=== PATIENT | male | born 1955 | race Caucasian/White ===

== ENCOUNTER 2017-10-13 16:03 | Emergency (ER) | payer BC ==
[2017-10-25] MEDS ORDERED: IBUPROFEN600 MG PO (11:26)
[2017-10-25] MEDS ORDERED: HYDROCODONE-APA1 TAB PO (11:26)
[2017-10-25] MEDS ORDERED: MULTIPLE VITAMI1 TA1 PO (11:33)
[2017-10-25] MEDS ORDERED: TESTOSTERON200 MG/ML IM (11:34)
[2017-10-26 07:22] VITALS: BMI 27.8
== END 2017-10-13 18:41 | disposition home or self-care (01) ==
LOC: D.ER 16:03
DX: S43.102A Unspecified dislocation of left acromioclavicular joint, initial encounter (principal); W19.XXXA Unspecified fall, initial encounter; Y93.89 Activity, other specified; Y92.029 Unspecified place in mobile home as the place of occurrence of the external cause; S42.002A Fracture of unspecified part of left clavicle, initial encounter for closed fracture

== ENCOUNTER 2017-10-26 05:15 | Day surgery (SDC) | payer BC ==
[~2017-10-26] VITALS: Ht 182.9 cm; Wt 93.0 kg
[~2017-10-26 05:15] MED LIST: HYDROCODONE-APA1 TAB PO; IBUPROFEN600 MG PO; MULTIPLE VITAMI1 TA1 PO; TESTOSTERON200 MG/ML IM
[2017-10-26 07:22] VITALS: BP 124/80; Ht 182.9 cm; Wt 93.0 kg
[2017-10-26] MEDS ORDERED: PERCOCET 7.5/321 TAB PO (08:24)
[2017-10-26] MEDS ORDERED: BACTRIM DS TABL1 TAB PO (08:25)
--- NOTE | 2017-10-26 11:45 | NUR ---
IV DC WITH CATHER TIP INTACT
--- NOTE | 2017-10-26 15:56 | OP ---
PATIENT NAME: GIGI HAMMOND MEDICAL RECORD: [id number] :59 LOCATION:[facility] ADMISSION DATE: SURGEON: SETH ROBERTSON DO DATE OF OPERATION: 10/26/2017 PROCEDURE PERFORMED: Left coracoclavicular ligament reconstruction. PREOPERATIVE DIAGNOSIS: Left acromioclavicular separation, grade III. POSTOPERATIVE DIAGNOSES: Left acromioclavicular separation, grade III. INDICATIONS: Mr. 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 He came to see me in the office shortly thereafter and a discussion was had with him about treatment. I told him we could try a nonoperative treatment and if that did not work and he did not tolerate that then and we could fix it. He called me a couple of days later and decided he wanted it fixed and he was scheduled for the procedure. He was informed of the risks and benefits of the procedure prior to coming and was consented for it. SURGEON: Seth Robertson DO ESTIMATED BLOOD LOSS: Approximately 50 mL. COMPLICATIONS: None. DESCRIPTION OF PROCEDURE: The patient was taken to the operative suite, laid in the supine position. He had been given a block in preoperative area by anesthesia prior to this, the left arm and shoulder were identified, prepped and draped, timeout was performed, and everyone was in agreement of correct side, site, and patient. The patient was given 900 mg clindamycin prior to starting the procedure. Once this was done, an incision was marked out over the AC joint and angling towards the coracoid in a vertical oblique type incision. The skin was incised with a #15 blade and then Bovie was used through the rest of the skin down to the deltoid fascia and the clavicle. The clavicle was palpated and a Bovie was used to take the deltoid off of the clavicle as well as for the trapezium. This was peeled off and the clavicle was exposed and the deltoid was divided. There was some bleeding encountered and that vein was tied off and bovied. Once that was done, the coracoid was encountered, clear path was cleared and the coracoid tip was palpated. A drill was then used after measurement was made 3.5 cm from the distal clavicle medially. That site was marked in the center of the clavicle from anterior to posterior. The drill was drilled through the clavicle and then a spot was checked and the drill was then taken to the base of the coracoid and then the overdrill was used over that. Once this was done, the drill and overdrilled were removed and button was pushed through sarika holes and then set. The button was flipped on the inferior surface of the coracoid. Once this was done, button was placed on the superior aspect of the clavicle and the clavicle was cinched down. Once this was cinched down and seemed to be very tight, x-ray was taken and seemed to be in good position; however, there was some remaining distal clavicle somewhat elevated and this was exposed and then taken off with a saw and then smoothed out and we recinched down the button. Again, x-ray was taken and seemed to be in very good position and very adequate reduction and then the wound was thoroughly irrigated. The deltoid and trapezium fascia were repaired over the clavicle and over the AC joint in an inverted fashion with #2 Ethibond, it seemed to be a very good OPERATIVE REPORT [id number] GIGI HAMMOND closure and then irrigated again and the skin was closed with 2-0 Vicryl in an inverted interrupted fashion and then Prineo glue was placed over that incision. The wounds were then dressed with Adaptic, 4 x 4s and ABD and placed into a sling, awakened and taken to recovery in stable condition. TRANSINT:[id number] Voice Confirmation ID: [id number] DOCUMENT ID: [id number] SETH ROBERTSON DO at 1556 CC: [id number] DICTATION DATE: 10/26/17 1034 BATCH AND FURNACE OPERATOR: 10/26/17 1158 [facility] 10/26/17 [id number] [place] [address]
== END 2017-10-26 12:19 | disposition home or self-care (01) ==
LOC: D.OPS 05:15 → D.PAN 08:45 → D.OPS 08:45
DX: S43.102A Unspecified dislocation of left acromioclavicular joint, initial encounter (principal); K21.9 Gastro-esophageal reflux disease without esophagitis; M19.90 Unspecified osteoarthritis, unspecified site; Z01.812 Encounter for preprocedural laboratory examination

== ENCOUNTER → 2018-09-20 13:27 | Outpatient (CLI) | payer SELFPAY ==
[2017-10-26 07:22] VITALS: BMI 27.8
[~2018-09-20 13:27] MED LIST changes: +BACTRIM DS TABL1 TAB PO; +PERCOCET 7.5/321 TAB PO
[2018-09-20 13:45] LABS: BASOPHILS 0.3 % (0-2); EOSINOPHILS 1.9 % (0-7); HEMATOCRIT 42.9 % (42.0-54.0); HEMOGLOBIN 14.4 g/dL (13.5-17.5); IMMATURE GRANULOCYTES 0.2 % (0-5); LYMPHOCYTES 22.7 % (15-50); MCH 29.1 pg (26.0-34.0); MCHC 33.6 g/dL (31.0-37.0); MCV 86.8 fL (80.0-100.0); MEAN PLATELET VOLUME 9.2 fL (7.4-10.4); MONOCYTES 17.9 % (2-11); PLATELET COUNT 193 10x3/uL (130-400); RBC 4.94 10x6/uL (4.20-6.10); RDW 14.3 % (11.5-14.5); WBC 5.8 10x3/uL (4.8-10.8)
[2018-09-20 14:01] LABS: CREATININE - SERUM 0.9 mg/dL (0.6-1.3); VANCOMYCIN - TROUGH 5.9 ug/mL (10.0-20.0)
== END | disposition home or self-care (01) ==
LOC: D.LABREF 13:27
PROVIDERS: Orthopaedic Surgery Adult Reconstructive Orthopaedic Surgery
DX: T84.54XD Infection and inflammatory reaction due to internal left knee prosthesis, subsequent encounter (principal); K21.9 Gastro-esophageal reflux disease without esophagitis

== ENCOUNTER → 2018-09-26 10:53 | Outpatient (CLI) | payer OTHER ==
[2017-10-26 07:22] VITALS: BMI 27.8
[2018-09-26 12:05] LABS: BASOPHILS 0.6 % (0-2); HEMATOCRIT 43.1 % (42.0-54.0); HEMOGLOBIN 14.5 g/dL (13.5-17.5); LYMPHOCYTES 25.5 % (15-50); MCH 28.8 pg (26.0-34.0); MCHC 33.6 g/dL (31.0-37.0); MCV 85.7 fL (80.0-100.0); MEAN PLATELET VOLUME 8.8 fL (7.4-10.4); MONOCYTES 13.8 % (2-11); NEUTROPHILS 54.1 % (40-80); RBC 5.03 10x6/uL (4.20-6.10)
[2018-09-26 12:06] LABS: PLATELET COUNT 248 10x3/uL (130-400)
[2018-09-26 12:24] LABS: CREATININE - SERUM 0.9 mg/dL (0.6-1.3); VANCOMYCIN - TROUGH 10.2 ug/mL (10.0-20.0)
== END | disposition home or self-care (01) ==
LOC: D.LABREF 10:53
PROVIDERS: Internal Medicine Infectious Disease
DX: T84.54XD Infection and inflammatory reaction due to internal left knee prosthesis, subsequent encounter (principal); Z96.652 Presence of left artificial knee joint

== ENCOUNTER → 2018-10-03 10:37 | Outpatient (CLI) | payer OTHER ==
[2017-10-26 07:22] VITALS: BMI 27.8
== END | disposition home or self-care (01) ==
LOC: D.LABREF 10:37
DX: T84.54XD Infection and inflammatory reaction due to internal left knee prosthesis, subsequent encounter (principal); Z96.652 Presence of left artificial knee joint

== ENCOUNTER → 2018-10-08 09:35 | Outpatient (CLI) | payer OTHER ==
[2017-10-26 07:22] VITALS: BMI 27.8
== END | disposition home or self-care (01) ==
LOC: D.LABREF 09:35
DX: T84.54XD Infection and inflammatory reaction due to internal left knee prosthesis, subsequent encounter (principal); Z96.652 Presence of left artificial knee joint

== ENCOUNTER → 2018-10-17 10:26 | Outpatient (CLI) | payer OTHER ==
[2017-10-26 07:22] VITALS: BMI 27.8
== END | disposition home or self-care (01) ==
LOC: D.LABREF 10:26
DX: T84.54XD Infection and inflammatory reaction due to internal left knee prosthesis, subsequent encounter (principal); Z96.652 Presence of left artificial knee joint

== ENCOUNTER → 2018-10-23 11:27 | Outpatient (CLI) | payer OTHER ==
[2017-10-26 07:22] VITALS: BMI 27.8
[2018-10-23 13:01] LABS: BASOPHILS 0.8 % (0-2); EOSINOPHILS 14.1 % (0-7); HEMATOCRIT 42.6 % (42.0-54.0); HEMOGLOBIN 14.2 g/dL (13.5-17.5); IMMATURE GRANULOCYTES 0.3 % (0-5); LYMPHOCYTES 31.6 % (15-50); MCH 28.1 pg (26.0-34.0); MCHC 33.3 g/dL (31.0-37.0); MCV 84.2 fL (80.0-100.0); MEAN PLATELET VOLUME 8.9 fL (7.4-10.4); MONOCYTES 19.4 % (2-11); NEUTROPHILS 33.8 % (40-80); RBC 5.06 10x6/uL (4.20-6.10); RDW 14.9 % (11.5-14.5); WBC 3.6 10x3/uL (4.8-10.8)
[2018-10-23 13:05] LABS: PLATELET COUNT 149 10x3/uL (130-400)
[2018-10-23 13:13] LABS: VANCOMYCIN - TROUGH 15.6 ug/mL (10.0-20.0)
== END | disposition home or self-care (01) ==
LOC: D.LABREF 11:27
PROVIDERS: Family Medicine
DX: M19.90 Unspecified osteoarthritis, unspecified site (principal)

== ENCOUNTER → 2019-06-24 14:09 | Outpatient (CLI) | payer OTHER ==
[2017-10-26 07:22] VITALS: BMI 27.8
== END | disposition home or self-care (01) ==
LOC: D.MRI 14:09
PROVIDERS: ATTEND Orthopaedic Surgery
DX: M54.16 Radiculopathy, lumbar region (principal)

== ENCOUNTER → 2019-10-02 18:21 | Outpatient (CLI) | payer OTHER ==
[2017-10-26 07:22] VITALS: BMI 27.8
[2019-10-02 18:38] LABS: BASOPHILS 0.3 % (0-2); EOSINOPHILS 1.6 % (0-7); HEMATOCRIT 40.8 % (42.0-54.0); HEMOGLOBIN 13.3 g/dL (13.5-17.5); IMMATURE GRANULOCYTES 0.3 % (0-5); MCH 30.6 pg (26.0-34.0); MCHC 32.6 g/dL (31.0-37.0); MCV 93.8 fL (80.0-100.0); MEAN PLATELET VOLUME 9.4 fL (7.4-10.4); MONOCYTES 10.9 % (2-11); NEUTROPHILS 53.9 % (40-80); RBC 4.35 10x6/uL (4.20-6.10); RDW 13.5 % (11.5-14.5); WBC 6.8 10x3/uL (4.8-10.8)
[2019-10-02 18:39] LABS: PLATELET COUNT 244 10x3/uL (130-400)
[2019-10-02 19:45] LABS: ERYTHROCYTE SEDIMENTATION RATE 33 mm/hr (0-20)
== END | disposition home or self-care (01) ==
LOC: D.LABREF 18:21
PROVIDERS: ATTEND Nurse Practitioner Family
DX: M00.9 Pyogenic arthritis, unspecified (principal)

== ENCOUNTER → 2020-01-23 14:01 | Outpatient (CLI) | payer OTHER ==
[2017-10-26 07:22] VITALS: BMI 27.8
== END | disposition home or self-care (01) ==
LOC: D.LABREF 14:01
PROVIDERS: ATTEND Orthopaedic Surgery
DX: M16.12 Unilateral primary osteoarthritis, left hip (principal)

== ENCOUNTER 2020-01-28 08:00 | Outpatient (CLI) | payer OTHER ==
[2017-10-26 07:22] VITALS: BMI 27.8
[2020-01-28] MEDS ORDERED: FLOMAX0.4 MG PO (11:29)
[2020-01-28] MEDS ORDERED: GABAPENTIN100 MG (11:29)
[2020-01-28] MEDS ORDERED: CELEBREX200 MG PO (11:29)
[2020-01-28] MEDS ORDERED: SINEMET 25-1001 EAC1 (11:30)
[2020-01-28 12:20] LABS: BASOPHILS 0.2 % (0-2); EOSINOPHILS 1.9 % (0-7); HEMATOCRIT 40.5 % (42.0-54.0); HEMOGLOBIN 13.7 g/dL (13.5-17.5); IMMATURE GRANULOCYTES 0.2 % (0-5); LYMPHOCYTES 32.9 % (15-50); MCH 30.4 pg (26.0-34.0); MCHC 33.8 g/dL (31.0-37.0); MEAN PLATELET VOLUME 8.8 fL (7.4-10.4); MONOCYTES 11.9 % (2-11); NEUTROPHILS 52.9 % (40-80); PLATELET COUNT 207 10x3/uL (130-400); RDW 13.6 % (11.5-14.5); WBC 5.1 10x3/uL (4.8-10.8)
[2020-01-28 12:26] LABS: BILIRUBIN NEGATIVE (NEGATIVE); GLUCOSE NEGATIVE (NEGATIVE); KETONE NEGATIVE (NEGATIVE); NITRITE NEGATIVE (NEGATIVE); SPECIFIC GRAVITY 1.015 (1.005-1.020); UROBILINOGEN NORMAL (NORMAL)
[2020-01-28 12:37] LABS: INR 0.96 (0.85-1.17); PROTIME 12.8 SECONDS (11.6-15.0)
[2020-01-28 12:38] LABS: APTT 26.7 SECONDS (22.8-39.4)
[2020-01-28 12:42] LABS: ANION GAP 7.6 mmol/L (8-16); CALCIUM 9.5 mg/dL (8.5-10.1); CARBON DIOXIDE 31.2 mmol/L (21.0-32.0); CREATININE - SERUM 1.1 mg/dL (0.6-1.3); POTASSIUM - SERUM 3.8 mmol/L (3.5-5.1)
== END 2020-01-28 08:01 | disposition home or self-care (01) ==
LOC: D.PAN 08:00 → EDSTATUS 02-03 10:00 → D.SDCHOLD 02-03 10:00
PROVIDERS: ATTEND Orthopaedic Surgery
DX: M16.12 Unilateral primary osteoarthritis, left hip (principal); Z01.810 Encounter for preprocedural cardiovascular examination; Z01.811 Encounter for preprocedural respiratory examination; Z01.812 Encounter for preprocedural laboratory examination

== ENCOUNTER 2020-03-08 12:54 | Inpatient (IN) | payer OTHER ==
[~2020-03-08] VITALS: Ht 182.9 cm; Wt 88.5 kg
[~2020-03-08 12:54] MED LIST changes: +CELEBREX200 MG PO; +FLOMAX0.4 MG PO; +GABAPENTIN100 MG; +SINEMET 25-1001 EAC1
[2020-03-25] MEDS ORDERED: CELEBREX 100 M100 MG (10:18)
[2020-03-25] MEDS ORDERED: ZINC50 MG PO (10:19)
[2020-03-25] MEDS ORDERED: TYLENOL PM1 TAB PO (10:21)
[2020-03-25 11:15] LABS: ANION GAP 6.7 mmol/L (8-16); APTT 27.1 SECONDS (22.8-39.4); CARBON DIOXIDE 31.5 mmol/L (21.0-32.0); CREATININE - SERUM 1.1 mg/dL (0.6-1.3); INR 0.95 (0.85-1.17); POTASSIUM - SERUM 4.2 mmol/L (3.5-5.1); PROTIME 12.6 SECONDS (11.6-15.0)
[2020-03-25 11:16] LABS: BILIRUBIN NEGATIVE (NEGATIVE); GLUCOSE NEGATIVE (NEGATIVE); KETONE NEGATIVE (NEGATIVE); NITRITE NEGATIVE (NEGATIVE); SPECIFIC GRAVITY 1.015 (1.005-1.020)
[2020-03-25 11:21] LABS: BASOPHILS 0.4 % (0-2); EOSINOPHILS 2.6 % (0-7); HEMOGLOBIN 12.7 g/dL (13.5-17.5); IMMATURE GRANULOCYTES 0.4 % (0-5); LYMPHOCYTES 30.3 % (15-50); MCH 29.7 pg (26.0-34.0); MCHC 31.8 g/dL (31.0-37.0); MCV 93.5 fL (80.0-100.0); MEAN PLATELET VOLUME 8.8 fL (7.4-10.4); MONOCYTES 11.9 % (2-11); NEUTROPHILS 54.4 % (40-80); PLATELET COUNT 221 10x3/uL (130-400); RBC 4.28 10x6/uL (4.20-6.10); RDW 13.7 % (11.5-14.5); WBC 5.4 10x3/uL (4.8-10.8)
[2020-03-30 10:16] VITALS: BMI 26.5
--- NOTE | 2020-03-30 12:55 | NUR ---
LEFT HIP WAS PREPPED WITH HIBICLENS/ALCOHOL MIXTURE PRIOR TO PREPPING WITH CHLORAPREP. PLASMA BLADE AND AQUAMANIS WAS USED. SETTING ON 04/26 AND 170. GROUNDING PAD LOT #[id number]
[2020-03-30 15:34] VITALS: BP 107/64
--- NOTE | 2020-03-30 15:40 | NUR ---
RECEIVED TO ROOM 1213 VIA BED FROM PACU. A/O X3. DRESSING TO LEFT HIP DRY AND INTACT. DENIES NEEDS.
[2020-03-30 15:41] VITALS: BP 107/64; BMI 26.5
[2020-03-30 16:39] VITALS: BP 112/63
--- NOTE | 2020-03-30 18:06 | NUR ---
CONTINUES TO C/O NEED TO VOID. IN/OUT CATH PERFORMED USING STERILE TECHNIQUE WITH 600CC CLEAR YELLOW URINE. TOLERATED WITHOUT C/O PAIN OR DISCOMFORT. REPORTED FEELING MUCH BETTER AFTER.
--- NOTE | 2020-03-30 18:56 | NUR ---
RESTING QUIETLY WITH EYES CLOSED. NO NEEDS NOTED.
[2020-03-30 20:00] VITALS: BP 106/58
--- NOTE | 2020-03-30 20:53 | OP ---
PATIENT NAME: GIGI HAMMOND MEDICAL RECORD: [id number] :59 LOCATION:D. D.1213 ADMISSION DATE:03/30/20 SURGEON: SETH ROBERTSON DO DATE OF OPERATION: 03/30/2020 PROCEDURE PERFORMED: Left total hip arthroplasty. PREOPERATIVE DIAGNOSIS: Left hip osteoarthritis. POSTOPERATIVE DIAGNOSIS: Left hip osteoarthritis. INDICATIONS: Mr. Gigi Hammond is a 64-year-old male who has had left hip pain for quite some time. He has tried intra-articular injections, no avail and not helped him. He also has some back problems, which could be associated with hip pain as well, but he said he had been getting injections in the back and they have not helped either and so he want his hip replaced as he does have some osteoarthritis on x-rays. The patient was aware of the high risk of infection due to the fact he had an infection in the left knee after a total knee done at another facility and that he was at high risk for that with this. He is also aware of the risk of blood clots, bleeding, damage to nerves and vessels in the area, specifically the lateral femorocutaneous nerve and continued pain, dislocation and instability and need for further surgery, failure of implants. He signed consent. SURGEON: Seth Robertson DO DESCRIPTION OF PROCEDURE: The patient was taken to operative suite and laid in supine position, given general anesthetic and intubated. He was then moved over to the Clemmons table and positioned. The left hip was then prepped and draped in sterile fashion. He was given 1.25 grams of vancomycin preoperatively. The left hip was then prepped and draped in sterile fashion. Timeout was performed; everyone was in agreement with the correct side, site, patient and procedure. We then began by marking out an incision over the tensor fascia nicole muscle. Careful dissection made down to the muscle. The fascia was taken anteriorly with muscle belly posteriorly. We opened up the rectus interval. The rectus was then taken medial and the tensor fascia nicole laterally. We then encountered the ascending branch of lateral femoral circumflex. This was tied off and coagulated with Aquamantys. Once that was completed, the capsule was then opened and tagged and the Hohmanns were placed around the neck of the femur. Femoral neck cut was then made. The trial was put in and the head was removed prior to this. Once the head was removed and a trial was put in and the labrum was removed as well as the pulvinar. We then began reaming first medializing and then reaming up to 56; 56 cup fit very well. This was impacted into place and the liner was put in. This was done under fluoroscopy and the femur was then exposed and used a canal finder and cookie cutter and then a 4 broach up to a 12; 12 fit very well and reduced the hip first with a -3 neck and then a +3; +3 neck seemed to have the closest length with right hip on x-ray with AP pelvis. We then decide to go with that. The hip was then dislocated and the head was removed as well as the trial. Once the trial was removed, irrigated and then put in the 12 stem. Once 12 stem was in, I put in the dual mobility head, impacted on and then the hip was reduced. X-rays were taken. There was no fracture seen in the femur. The stem fit very well and AP pelvis showed close to exact equal lengths of the right and left lesser trochanter. I then irrigated with 500 mL normal saline and 10% povidone iodine left in the wound OPERATIVE REPORT [id number] GIGI HAMMOND for 3 minutes, was irrigated out with a liter of normal saline. I then put in Aniyah, vancomycin-tobramycin powder and then closed the capsule with #2 Ethibond and then closed the tensor fascia nicole fascia with a #1 Vicryl running first in a [id number] and then a running locking stitch. Skin was then closed liudmila Walters surgical behavioral assistant with 2-0 Vicryl in inverted interrupted fashion, 4-0 Monocryl on the skin and Prineo glue placed on the knee and dressed with Telfa and Tegaderm. The patient was given a gram of TXA prior to starting the procedure and then at closing as well. He was then awakened and taken to recovery in stable condition. Blood loss approximately 300 mL. COMPLICATIONS: None. TRANSINT:[id number] Voice Confirmation ID: [id number] DOCUMENT ID: [id number] SETH ROBERTSON DO at 7192 CC: [id number] DICTATION DATE: 03/30/20 141 [facility]: 03/30/201928 ADM IN [facility] [address] [facility], [facility]
--- NOTE | 2020-03-30 23:01 | NUR ---
PT WITH 550ML URINE PER URINAL. COMPLAINS OF MINOR DISCOMFORT. SCHEDULED TYLENOL GIVEN. CALL LIGHT IN REACH. WILL CONTINUE TO OBSERVE.
[2020-03-31] VITALS: BP 95/57
--- NOTE | 2020-03-31 01:10 | NUR ---
PT WALKED USING WALKER TO NURSES STATION AND BACK TO ROOM. SLOW GAIT NOTED. COMPLAINS OF BURNING, SHOOTING PAIN TO LEFT KNEE. PT TO BATHROOM URINE ONLY NOTED. PT IN BED. PRN PAIN MEDICATION GIVEN PER JAN. RESTING WITH EYES CLOSED AND CHEST RISING. NO S/S OF DISTRESS. CALL LIGHT IN REACH. WILL CONTINUE TO OBSERVE.
[2020-03-31 04:00] VITALS: BP 92/53
[2020-03-31 06:27] LABS: BASOPHILS 0.1 % (0-2); HEMATOCRIT 35.4 % (42.0-54.0); HEMOGLOBIN 11.5 g/dL (13.5-17.5); IMMATURE GRANULOCYTES 0.2 % (0-5); LYMPHOCYTES 3.7 % (15-50); MCHC 32.5 g/dL (31.0-37.0); MCV 92.4 fL (80.0-100.0); MEAN PLATELET VOLUME 8.6 fL (7.4-10.4); MONOCYTES 5.2 % (2-11); NEUTROPHILS 89.8 % (40-80); RBC 3.83 10x6/uL (4.20-6.10); RDW 13.6 % (11.5-14.5); WBC 8.7 10x3/uL (4.8-10.8)
[2020-03-31 06:44] LABS: PLATELET COUNT 176 10x3/uL (130-400)
[2020-03-31 06:51] LABS: CALC OSMOLALITY 273 mosm/kg (275-300); CALCIUM 8.6 mg/dL (8.5-10.1); CHLORIDE - SERUM 102 mmol/L (98-107); GLUCOSE 131 mg/dL (74-106); MAGNESIUM - SERUM 2.1 mg/dL (1.8-2.4); PHOSPHOROUS 3.8 mg/dL (2.5-4.9); POTASSIUM - SERUM 4.1 mmol/L (3.5-5.1); SODIUM 134 mmol/L (136-145); UREA NITROGEN 23 mg/dL (7-18); eGFR NON AFRICAN AMERICAN 80 mL/min (90-120)
[2020-03-31 08:30] VITALS: BP 88/50
[2020-03-31 12:30] VITALS: BP 92/64
[2020-03-31 13:14] VITALS: Ht 182.9 cm; Wt 88.5 kg
[2020-03-31] MEDS ORDERED: ELIQUIS2.5 MG PO (13:23)
[2020-03-31] MEDS ORDERED: SMZ-TMP DS 800-1 TAB PO (13:24)
[2020-03-31] MEDS ORDERED: oxyCODONE IR PO (13:24)
[2020-03-31] MEDS ORDERED: VISTARIL50 MG PO (13:24)
--- NOTE | 2020-03-31 14:46 | MORECARE ---
CASE MANAGEMENT DISCHARGE SUMMARY PATIENT: GIGI HAMMOND UNIT: [id number] ADM DATE: 03/30/20 AGE: 64 : 59 SEX: M ROOM/BED: D.1213 AUTHOR: MITESH MALONE PHYSICIAN: REFERRING PHYSICIAN: CHRIS ROBERTSON DO DATE OF SERVICE: 03/31/20 Discharge Plan Patient Name: GIGI HAMMOND Facility: [facility]:[place] : 1955 Planned Disposition: Outpatient PT\OT Anticipated Discharge Date: 03/31/20 Discharge Date: Expected LOS: 1 Initial Reviewer: [id number] Initial Review Date: 03/30/2020 Generated: 03/31/20 3:45 pm DCPIA - Discharge Planning Initial Assessment Updated by [email or web address]: Beverly Smalls on 03/31/20 2:45 pm * Is the patient Alert and Oriented? Yes * How many steps to enter\exit or inside your home? * PCP Dr. Hoyt * Pharmacy [facility] * Preadmission Environment Home with Family * ADLs Independent * Equipment Bedside Commode Cane Walker * List name and contact numbers for known caregivers / representatives who currently or will assist patient after discharge: Bay Hammond [phone] * Verbal permission to speak to the caregivers and representatives has been obtained from the patient. Yes * Community resources currently utilized None * Please name any agencies selected above. [facility] #[phone] * Additional services required to return to the preadmission environment? Yes * Can the patient safely return to the preadmission environment? Yes * Has this patient been hospitalized within the prior 30 days at any hospital? No Coverage Notice Reviewer: [id number] - Beverly Smalls Notice Issued Date-Time: 03/31/2020 14:29 Notice Type: Patient Choice Letter Notice Delivered To: Patient Relationship to Patient: Self Weed Sprayer Name: Gigi Hammond Delivery Method: HAND - Hand Delivered Shanna Days: Prior Verbal Notification: Recipient Understood Notice: Yes Recipient Signature: Yes Med Rec Note Co-signed by Attending: Coverage Notice Comment: Patient choice signed/given to patients for [facility]. Original to chart. Patient Name: GIGI HAMMOND Page [id number] at 1446 All edits/amendments must be made on the electronic document DICTATION DATE: 03/31/201444 DETAIL SERGEANT: GILSON 03/31/201444 RPT#: [id number] DC DATE: STATUS: ADM IN [facility] [address] [place] [address] END OF REPORT
--- NOTE | 2020-03-31 15:00 | NUR ---
pt oob today with pt. tolerated well. voids frequently in urinal. reports passing gas. discharge instructions given. piv removed. will transport to exit with wheelchair.
--- NOTE | 2020-03-31 15:25 | MORECARE ---
CASE MANAGEMENT DISCHARGE SUMMARY PATIENT: GIGI HAMMOND UNIT: [id number] ADM DATE: 03/30/20 AGE: 64 : 59 SEX: M ROOM/BED: D.1213 AUTHOR: KIRA,DOC PHYSICIAN: REFERRING PHYSICIAN: CHRIS ROBERTSON DO DATE OF SERVICE: 03/31/20 Discharge Plan Patient Name: GIGI HAMMOND Facility: [facility]:[place] : 1955 Planned Disposition: Outpatient PT\OT Anticipated Discharge Date: 03/31/20 Discharge Date: Expected LOS: 1 Initial Reviewer: [email or web address] Initial Review Date: 03/30/2020 Generated: 03/31/20 4:25 pm Comments DCP- Discharge Planning Updated by [id number]: Beverly Smalls on 03/31/20 2:[address] DC Plan: [facility], 04/02/20 @1315. CM met with patient to discuss initial discharge planning. Patient is in agreement to proceed with the assessment. Patient reports that he lives at home independently with his spouse. Patient is alert/oriented. Stairs/steps: 1. PCP: Dr. Hoyt. Pharmacy: [facility]. Patient states they have been able to obtain all of their prescribed medications. HHS: No. DME: [facility]. Patient gives permission to speak with family members. Emergency contact: Bay Hammond () [phone]. Patient is partial independently with all ADL's, medication management JOB MOLDER. CM discussed the availability of HH, Rehab, DME services. Patient has an appointment scheduled with [facility], Sunday04/02/20 @1:15. Patient denies being hospitalized within the past 30 days. Patient denies the use of community resources JOB MOLDER. Transportation at time of discharge: [facility]. DCPIA - Discharge Planning Initial Assessment Updated by [id number]: Beverly Smalls on 03/31/20 2:45 pm * Is the patient Alert and Oriented? Yes * How many steps to enter\exit or inside your home? * PCP Dr. Hoyt * [facility]acy [facility] * Preadmission Environment Home with Family * ADLs Independent * Equipment Bedside Commode Cane Walker * List name and contact numbers for known caregivers / representatives who currently or will assist patient after discharge: Bay Hammond [phone] * Verbal permission to speak to the caregivers and representatives has been obtained from the patient. Yes * Community resources currently utilized None * Please name any agencies selected above. [facility] #[phone] * Additional services required to return to the preadmission environment? Yes * Can the patient safely return to the preadmission environment? Yes * Has this patient been hospitalized within the prior 30 days at any hospital? No Coverage Notice Reviewer: [id number] Pina Smalls Notice Issued Date-Time: 03/31/2020 14:29 Notice Type: Patient Choice Letter Notice Delivered To: Patient Relationship to Patient: Self Grinder Mill Operator Name: Gigi Hammond Delivery Method: HAND - Hand Delivered Shanna Days: Prior Verbal Notification: Recipient Understood Notice: Yes Recipient Signature: Yes Med Rec Note Co-signed by Attending: Coverage Notice Comment: Patient choice signed/given to patients for [facility]. Original to chart. Last DP export: 03/31/20 1:46 p Patient Name: GIGI HAMMOND Page [id number] at 1525 All edits/amendments must be made on the electronic document DICTATION DATE: 03/31/201524 CRO: GILSON 03/31/201524 RPT#: [id number] DC DATE: STATUS: ADM IN [facility] [address] [place] [address] END OF REPORT
--- NOTE | 2020-03-31 15:54 | MORECARE ---
CASE MANAGEMENT DISCHARGE SUMMARY PATIENT: GIGI HAMMOND UNIT: [id number] ADM DATE: 03/30/20 AGE: 64 : 59 SEX: M ROOM/BED: D.1213 AUTHOR: KIRA,DOC PHYSICIAN: REFERRING PHYSICIAN: CHRIS ROBERTSON DO DATE OF SERVICE: 03/31/20 Discharge Plan Patient Name: GIGI HAMMOND Facility: [facility]:[place] : 1955 Planned Disposition: Outpatient PT\OT Anticipated Discharge Date: 03/31/20 Discharge Date: Expected LOS: 1 Initial Reviewer: [email or web address] Initial Review Date: 03/30/2020 Generated: 03/31/20 4:53 pm Comments DCP- Discharge Planning Updated by [email or web address]: Beverly Smalls on 03/31/20 2:[address] DC Plan: [facility], 04/02/20 @1315. CM met with patient to discuss initial discharge planning. Patient is in agreement to proceed with the assessment. Patient reports that he lives at home independently with his spouse. Patient is alert/oriented. Stairs/steps: 1. PCP: Dr. Hoyt. Pharmacy: [facility]. Patient states they have been able to obtain all of their prescribed medications. HHS: No. DME: [facility]. Patient gives permission to speak with family members. Emergency contact: Bay Hammond () [phone]. Patient is partial independently with all ADL's, medication management DERMATOLOGIST. CM discussed the availability of HH, Rehab, DME services. Patient has an appointment scheduled with [facility], Sunday04/02/20 @1:15. Patient denies being hospitalized within the past 30 days. Patient denies the use of community resources DERMATOLOGIST. Transportation at time of discharge: [facility]. DCPIA - Discharge Planning Initial Assessment Updated by [id number]: Beverly Smalls on 03/31/20 2:45 pm * Is the patient Alert and Oriented? Yes * How many steps to enter\exit or inside your home? * PCP Dr. Hoyt * Pharmacy [facility] * Preadmission Environment Home with Family * ADLs Independent * Equipment Bedside Commode Cane Walker * List name and contact numbers for known caregivers / representatives who currently or will assist patient after discharge: Bay Hammond [phone] * Verbal permission to speak to the caregivers and representatives has been obtained from the patient. Yes * Community resources currently utilized None * Please name any agencies selected above. [facility] #[phone] * Additional services required to return to the preadmission environment? Yes * Can the patient safely return to the preadmission environment? Yes * Has this patient been hospitalized within the prior 30 days at any hospital? No External Providers External Provider: OTHER-OTHER Next Contact Date: Service Request Date: Service Type: Resolution: Reviewer: Comments: Coverage Notice Reviewer: [id number] - Beverly Smalls Notice Issued Date-Time: 03/31/2020 14:29 Notice Type: Patient Choice Letter Notice Delivered To: Patient Relationship to Patient: Self Er Medical Technician Name: Gigi Hammond Delivery Method: HAND - Hand Delivered Shanna Days: Prior Verbal Notification: Recipient Understood Notice: Yes Recipient Signature: Yes Med Rec Note Co-signed by Attending: Coverage Notice Comment: Patient choice signed/given to patients for [facility]. Original to chart. Last DP export: 03/31/20 2:25 p Patient Name: GIGI HAMMOND Page [id number] at 1554 All edits/amendments must be made on the electronic document DICTATION DATE: 03/31/201552 ORTHOPEDICS PEDIATRIC PHYSICIAN: GILSON 03/31/201552 RPT#: [id number] DC DATE: STATUS: ADM IN [facility] [address] [place] [address] END OF REPORT
--- NOTE | 2020-03-31 16:53 | MORECARE ---
CASE MANAGEMENT DISCHARGE SUMMARY PATIENT: GIGI HAMMOND UNIT: [id number] ADM DATE: 03/30/20 AGE: 64 : 59 SEX: M ROOM/BED: D.1213 AUTHOR: KIRA,DOC PHYSICIAN: REFERRING PHYSICIAN: CHRIS ROBERTSON DO DATE OF SERVICE: 03/31/20 Discharge Plan Patient Name: GIGI HAMMOND Facility: [facility]:[place] : 1955 Planned Disposition: Outpatient PT\OT Anticipated Discharge Date: 03/31/20 Discharge Date: 03/31/2020 Expected LOS: 1 Initial Reviewer: [email or web address] Initial Review Date: 03/30/2020 Generated: 03/31/20 5:52 pm Comments DCP- Discharge Planning Updated by [email or web address]: Beverly Smalls on 03/31/20 2:[address] DC Plan: [facility], 04/02/20 @1315. CM met with patient to discuss initial discharge planning. Patient is in agreement to proceed with the assessment. Patient reports that he lives at home independently with his spouse. Patient is alert/oriented. Stairs/steps: 1. PCP: Dr. Hoyt. Pharmacy: [facility]. Patient states they have been able to obtain all of their prescribed medications. HHS: No. DME: [facility]. Patient gives permission to speak with family members. Emergency contact: Bay Hammond () [phone]. Patient is partial independently with all ADL's, medication management DEVULCANIZER HEAD. CM discussed the availability of HH, Rehab, DME services. Patient has an appointment scheduled with [facility], Sunday04/02/20 @1:15. Patient denies being hospitalized within the past 30 days. Patient denies the use of community resources DEVULCANIZER HEAD. Transportation at time of discharge: [facility]. DCPIA - Discharge Planning Initial Assessment Updated by [id number]: Beverly Smalls on 03/31/20 2:45 pm * Is the patient Alert and Oriented? Yes * How many steps to enter\exit or inside your home? * PCP Dr. Hoyt * Pharmacy [facility] * Preadmission Environment Home with Family * ADLs Independent * Equipment Bedside Commode Cane Walker * List name and contact numbers for known caregivers / representatives who currently or will assist patient after discharge: Bay Hammond [phone] * Verbal permission to speak to the caregivers and representatives has been obtained from the patient. Yes * Community resources currently utilized None * Please name any agencies selected above. [facility] #[phone] * Additional services required to return to the preadmission environment? Yes * Can the patient safely return to the preadmission environment? Yes * Has this patient been hospitalized within the prior 30 days at any hospital? No Coverage Notice Reviewer: [id number] Pina Smalls Notice Issued Date-Time: 03/31/2020 14:29 Notice Type: Patient Choice Letter Notice Delivered To: Patient Relationship to Patient: Self Webbing Inspector Name: Gigi Hammond Delivery Method: HAND - Hand Delivered Shanna Days: Prior Verbal Notification: Recipient Understood Notice: Yes Recipient Signature: Yes Med Rec Note Co-signed by Attending: Coverage Notice Comment: Patient choice signed/given to patients for [facility]. Original to chart. Last DP export: 03/31/20 2:54 p Patient Name: GIGI HAMMOND Page 28004 at 1653 All edits/amendments must be made on the electronic document DICTATION DATE: 03/31/201651 MANAGER DIALYSIS: GILSON 03/31/201651 RPT#: [id number] DC DATE:03/31/20 STATUS: DIS IN [facility] [address] [place] [address] END OF REPORT
== END 2020-03-31 15:40 | disposition home or self-care (01) | DRG 470 ==
LOC: D.SDCHOLD 03-30 08:00 → D.M3 03-30 09:24 → D.SDCHOLD 03-30 11:00 → D.M3 03-30 15:20
PROVIDERS: Family Medicine; ADMIT Orthopaedic Surgery; ATTEND Orthopaedic Surgery
PROC: 0SRB0JZ Replacement of Left Hip Joint with Synthetic Substitute, Open Approach (ICD-10-PCS; principal; 2020-03-30 08:00)
DX: M16.12 Unilateral primary osteoarthritis, left hip (principal); G20 Parkinson's disease; N40.0 Benign prostatic hyperplasia without lower urinary tract symptoms; K21.9 Gastro-esophageal reflux disease without esophagitis